=== PATIENT | female | born 1960 | race Caucasian/White ===

== ENCOUNTER → 2016-08-10 | Outpatient (CLI) | payer BC | END | disposition home or self-care (01) | LOC: GMAB 13:58 | PROVIDERS: ATTEND Family Medicine | DX: Z00.01 Encounter for general adult medical examination with abnormal findings (principal) ==

== ENCOUNTER 2017-03-14 06:07 | Day surgery (SDC) | payer BC ==
[2017-03-14] MEDS ORDERED: PROPOFOL 200 MG/20 ML VIAL IV ONE (06:08)
[2017-03-14] MEDS ORDERED: LACTATED RINGERS 1,000 ML ONE (06:23)
--- NOTE | 2017-03-14 10:17 | OP ---
DATE OF PROCEDURE: 03/14/17 PREPROCEDURE DIAGNOSIS: 1. Rectal bleeding. POSTPROCEDURE DIAGNOSIS: 1. Internal hemorrhoids. PROCEDURE: 1. Colonoscopy. SURGEON: Shaji Lawrence MD SEDATION: The patient was sedated via IV propofol by the Anesthesia Department. COMPLICATIONS: No immediate complications. CONSENT: Prior to the procedure, risks, benefits and alternatives to the therapy were discussed with the patient. The risks included bleeding, infection , perforation and . The patient agreed to the procedure and signed a consent. PREPROCEDURE ANESTHESIA ASSESSMENT: An examination revealed no contraindication to sedation. Airway examination demonstrated a Mallampati class type 3, ASA grade assessment type 2. Throughout the procedure, the patient's blood pressure, pulse and oxygen saturation were monitored continuously. PROCEDURE: The patient was placed in the left lateral decubitus position and a rectal examination was performed. The rectal examination was within normal limits. The Olympus colonoscope was passed in the anus, rectum, traversing the colon to the level of the cecum as identified by the appendiceal orifice. The scope was retracted and the mucosa was visualized. The entirety of the exam was performed with direct visualization. Retroflexion was performed in the rectum. Preparation quality was good. The withdrawal time was greater than 6 minutes. The patient tolerated the procedure well. FINDINGS: 1. An area of granularity was seen in the ileocecal valve. Biopsies were obtained from this area to rule out adenomatous tissue. 2. Medium sized, non-bleeding internal hemorrhoids were seen through retroflexion in the rectum. 3. External tags and external hemorrhoids were seen to digital rectal examination. IMPRESSION: 1. Non-bleeding internal hemorrhoids. This likely represents the source of bleeding. 2. Discrete area of granularity in the ileocecal valve, biopsied. RECOMMENDATION: 1. Return the patient home. 2. Resume previous diet. 3. Return to my office for hemorrhoidal banding in case of recurrent or persistent rectal bleeding. 4. Findings were discussed with the patient and the family members. 5. Followup pathology results. #[id number] [facility]
[2017-03-14 11:47] VITALS: BP 156/99; TEMP 97.7; O2SAT 96
== END 2017-03-14 09:52 | disposition home or self-care (01) ==
LOC: AMB 06:07
PROVIDERS: ATTEND Internal Medicine Gastroenterology
DX: K92.1 Melena (principal); K63.89 Other specified diseases of intestine; K64.8 Other hemorrhoids; K64.4 Residual hemorrhoidal skin tags; I10 Essential (primary) hypertension; K21.0 Gastro-esophageal reflux disease with esophagitis; E66.9 Obesity, unspecified; Z87.891 Personal history of nicotine dependence; J44.9 Chronic obstructive pulmonary disease, unspecified; F32.9 Major depressive disorder, single episode, unspecified; Z68.38 Body mass index [BMI] 38.0-38.9, adult; Z79.899 Other long term (current) drug therapy
CPT/HCPCS: 00811; 45380; J3490; J7120

== ENCOUNTER 2017-03-31 04:51 | Emergency (ER) | payer BC ==
[2017-03-31 05:07] VITALS: O2SAT 95
--- NOTE | 2017-03-31 05:36 | ED.PDOC ---
History of Present Illness - General Chief Complaint: Fever Stated Complaint: fever,cough,runny nose,congestion,headache Time Seen by Provider: 03/31/17 05:33 Source: patient Exam Limitations: no limitations - History of Present Illness Initial Comments: Silvina Cohen 56 y/o female seen today with cough,sneezing ,nasal congestion and fever for the last 4 days.She stated not better. Timing/Duration: constant, other - see hpi Severity: moderate Improving Factors: nothing Worsening Factors: nothing Associated Symptoms: other - see hpi Allergies/Adverse Reactions: Allergies [place] Allergy (Severe, Verified 03/31/17 05:07) Anaphylaxis Home Medications: Ambulatory Orders Budes/Formoterol INH 160/4.5 [Symbicort Inhaler 160/4.5] 1 puff INH DAILY Escitalopram Oxalate [Lexapro] 20 mg PO DAILY 03/23/15 Meloxicam 15 mg PO DAILY 03/23/15 Metoprolol Succinate [Toprol XL] 0 mg PO QD 03/23/15 Cefuroxime Axetil [Ceftin] 500 mg PO Q12H #14 tablet 03/31/17 Review of Systems - Review of Systems Constitutional: States: fever EENTM: States: see HPI Respiratory: States: see HPI Cardiology: States: no symptoms reported Gastrointestinal/Abdominal: States: no symptoms reported All other Systems: Reviewed and Negative, No Change from Baseline Past Medical History (General) - Patient Medical History Hx Seizures: No Hx Stroke: No Hx Dementia: No Hx Asthma: No Hx of COPD: Yes Hx Cardiac Disorders: No Hx Congestive Heart Failure: No Hx Pacemaker: No Hx Hypertension: Yes Hx Thyroid Disease: Yes Hx Diabetes: No Hx Gastroesophageal Reflux: Yes Hx Renal Disease: No Hx Cancer: Yes - cervical Hx of HIV: No Hx Hepatitis C: No Hx MRSA: No Surgical History: no surgical history, other - hysterectomy - Vaccination History Hx Tetanus, Diphtheria Vaccination: Yes - december 2016 Hx Influenza Vaccination: No Hx Pneumococcal Vaccination: No - Social History Hx Tobacco Use: Yes Hx Chewing Tobacco Use: No Hx Alcohol Use: No Hx Substance Use: No Hx Substance Use Treatment: No Hx Depression: No Hx Physical Abuse: No Hx Emotional Abuse: No Hx Suspected Abuse: No Family Medical History - Family History Mother Family History: Unknown Hx Family;Other: Pt was adopted, unknown biological family history. Physical Exam - Physical Exam General Appearance: Alert, Comfortable, No apparent distress Eye Exam: bilateral normal Ears, Nose, Throat: hearing grossly normal, normal pharynx Neck: non-tender, full range of motion, supple Respiratory: chest non-tender, lungs clear, normal breath sounds Cardiovascular/Chest: regular rate, rhythm, no murmur Peripheral Pulses: radial,right: 2+, radial,left: 2+ Gastrointestinal/Abdominal: normal bowel sounds, non tender, soft Back Exam: no vertebral tenderness Extremity: no pedal edema, no calf tenderness Neurologic: alert, oriented x 3 Progress - Results/Orders Results/Orders: Last Vital Signs Temp 99.6 F 03/31/17 05:00 Pulse 87 03/31/17 05:00 Resp 18 03/31/17 05:03 BP 147/102 03/31/17 05:00 Pulse Ox 95 03/31/17 05:00 Flu a/b-negative - EKG/XRAY/CT XRAY: chest - right basilar atelectasis Departure - Departure Clinical Impression: Pneumonia Qualifiers: Pneumonia type: due to unspecified organism Laterality: right Lung location: lower lobe of lung Qualified Code(s): J18.1 - Lobar pneumonia, unspecified organism Time of Disposition: 06:17 Disposition: Discharge to Home or Self Care Condition: Good Departure Forms: ED Discharge - Pt. Copy, Patient Portal Self Enrollment Instructions: DI for Pneumonia -- Adult Referrals: Flash Okeefe MD [Primary Care Provider] - 1-2 Weeks Prescriptions: Cefuroxime Axetil [Ceftin] 500 mg PO Q12H #14 tablet Home Medications: Ambulatory Orders Budes/Formoterol INH 160/4.5 [Symbicort Inhaler 160/4.5] 1 puff INH DAILY Escitalopram Oxalate [Lexapro] 20 mg PO DAILY 03/23/15 Meloxicam 15 mg PO DAILY 03/23/15 Metoprolol Succinate [Toprol XL] 0 mg PO QD 03/23/15 Cefuroxime Axetil [Ceftin] 500 mg PO Q12H #14 tablet 03/31/17 Additional Instructions: Drink extra fluids;May use over the counter cough medicine -Mucinex DM-one tablet am/pm for cough;Zyrtec-10 mg for nasal congestion at bedtime,Nasal saline spray for nose irrigation;Continue with all home medication
--- NOTE | 2017-03-31 05:58 | RAD ---
EXAM: Single view chest. INDICATION: Fever. COMPARISON: Chest x-ray: None. FINDINGS: Cardiac silhouette: Unremarkable. Arianne: Unremarkable. Lobar consolidation: None. Pleural effusion: None. Pneumothorax: None. Other: Right basilar interstitial opacities. There is subsegmental atelectasis along the left midlung Bones: Unremarkable. Other: None. IMPRESSION: Right basilar interstitial opacities, which may represent atelectasis or pneumonia. Electronically signed by: Elias Porter MD 03/31/2017 5:57 AM [facility] Workstation: [id number]
[2017-03-31] MEDS ORDERED: CEFUROXIME AXETIL TAB 250 MG TAB PO ONE (06:22)
[2017-03-31 06:37] VITALS: BP 133/97; TEMP 99.4
== END 2017-03-31 06:37 | disposition home or self-care (01) ==
LOC: ER 04:51
DX: J18.1 Lobar pneumonia, unspecified organism (principal); J44.9 Chronic obstructive pulmonary disease, unspecified; I10 Essential (primary) hypertension; E07.9 Disorder of thyroid, unspecified; Z85.41 Personal history of malignant neoplasm of cervix uteri; Z87.891 Personal history of nicotine dependence

== ENCOUNTER → 2017-07-17 | Outpatient (CLI) | payer BC ==
--- NOTE | 2017-07-17 14:23 | MRI ---
MRI right knee without contrast INDICATION: Knee pain no specific injury arthritis chronic symptoms initial encounter TECHNIQUE: Noncontrast MR imaging right knee FINDINGS: There is moderate lateral patellar tracking/subluxation. Multifocal grade 4 chondrosis throughout the patellofemoral joint especially lateral compartment with multifocal subchondral edema and cystic change and marginal osteophytes. There is a moderate joint effusion with multifocal mild reactive synovitis. Cruciate ligaments are intact. Extensor tendons are intact. Mild degenerative change of both menisci. There is a pedunculated osteophyte from the posterior medial tibial plateau. No major meniscal defect. Minimal free edge fraying body lateral meniscus on the coronal images. Mild osteoarthrosis of the tibiofemoral compartments as well with marginal osteophytes especially laterally and chondral thinning grade 2-3 in the lateral tibiofemoral compartment. Collateral ligaments are intact. IMPRESSION: Chondrosis and osteoarthrosis of the right knee most severe in the lateral patellofemoral joint Mild degenerative change of the menisci with minimal free edge fraying body lateral meniscus Moderate joint effusion No stabilizing ligament disruption Electronically signed by: Eugene Rebolledo MD 07/17/2017 2:22 PM CDT
== END ==
LOC: MRI 10:53
PROVIDERS: ATTEND Family Medicine
DX: M17.11 Unilateral primary osteoarthritis, right knee (principal)

== ENCOUNTER → 2017-07-26 | Outpatient (CLI) | payer BC ==
--- NOTE | 2017-07-26 15:56 | RAD ---
EXAM DESCRIPTION: Knee,Right Complete CLINICAL HISTORY: 57 years, Female, PAIN IN RIGHT KNEE COMPARISON: None TECHNIQUE: Four views of the right knee including standing views FINDINGS: No fracture or dislocation. Bones appear osteopenic with prominent trabecular pattern Mildly narrowed appearance of medial and lateral compartments on frontal view. Lateral view shows normal position of the patella. Mild superior posterior patellar spurring. No suprapatellar knee joint effusion. Normal contour of quadriceps and patellar tendons. Mild lateral tilt and subluxation of the patella on patellar sunrise view. Prominent lateral patellar spurring. [place] of the patella is 5 mm lateral to the trough of the femoral trochlea. IMPRESSION: Degenerative changes as described. Electronically signed by: Holland Chavarria MD 07/26/2017 3:55 PM CDT
--- NOTE | 2017-07-26 15:58 | RAD ---
EXAM DESCRIPTION: Pelvis CLINICAL HISTORY: 57 years Female, PAIN IN RIGHT HIP COMPARISON: None. TECHNIQUE: Single frontal x-ray view of pelvis and hips FINDINGS: Spurring at the lateral iliac wings noted bilaterally. Sacrum and bones of the pelvic ring appear intact. Proximal femurs are negative for fracture or hip dislocation. IMPRESSION: Negative for fracture. Electronically signed by: Holland Chavarria MD 07/26/2017 3:57 PM CDT
== END ==
LOC: RAD 08:14
PROVIDERS: ATTEND Orthopaedic Surgery
DX: M25.561 Pain in right knee (principal); M25.551 Pain in right hip

== ENCOUNTER → 2017-09-24 | Outpatient (CLI) | payer BC | LOC: RESP 08:25 | PROVIDERS: ATTEND Orthopaedic Surgery | DX: Z01.818 Encounter for other preprocedural examination (principal) ==

== ENCOUNTER → 2018-01-02 | Outpatient (CLI) | payer BC ==
--- NOTE | 2018-01-03 09:31 | US ---
US THYROID CLINICAL STATEMENT: E04.9. COMPARISON: None FINDINGS: Size right thyroid lobe: 4.5 x 2.1 x 2.0 cm Size left thyroid lobe: 4.3 x 1.9 x 1.8 cm Size isthmus: 0.41 cm Estimated total number of nodules greater than or equal to 1 cm: 1 Nodule 1: Size: 0.7 x 0.7 x 0.6 cm Location: Right Lower Composition: mixed cystic and solid: 1 point. Not vascular. Echogenicity: very hypoechoic: 3 points Shape: wider than tall: 0 points Margins: smooth: 0 points Echogenic foci: none: 0 points ACR Total Points: 4; ACR TI-RADS risk category: TR4 - moderately suspicious nodule. Nodule 2: Size: 1.0 x 1.0 x 0.9 cm Location: Left Lower Composition: solid or almost completely solid: 2 points. Nonvascular. Echogenicity: hypoechoic: 2 points Shape: wider than tall: 0 points Margins: ill-defined: 0 points Echogenic foci: none: 0 points ACR Total Points: 4; ACR TI-RADS risk category: TR4 - moderately suspicious nodule. The soft tissues around the thyroid gland show no evidence of distinct solid mass or cyst. No large calcifications or parenchymal edema. No overlying skin changes. Normal vascularity. IMPRESSION: 1. Nodule 1: ACR TI-RADS 2017 Category 4. Recommend: No further follow-up. . Please see ACR TI-RADS 2017 recommendations below.* 2. Nodule 2: ACR TI-RADS 2017 Category 4. Recommend: Follow-up ultrasound in 1 year. 3. Soft tissues around the thyroid gland are unremarkable. *ACR TI-RADS 2017 Recommendations: TR1: No FNA or follow up TR2: No FNA or follow up TR3: FNA if >/= 2.5 cm, follow up if 1.5 - 2.4 cm in 1, 3, and 5 years TR4: FNA if >/= 1.5 cm, follow up if 1.0 - 1.4 cm in 1, 2, 3, and 5 years TR5: FNA if >/= 1.0 cm, follow up if 0.5 - 0.9 cm every year for 5 years ACR TI-RADS recommends that no more than two nodules with the highest ACR TI-RADS total point should be biopsied and no more than four nodules should be followed. Electronically signed by: Bj Salgado MD 01/03/2018 9:29 AM CDT
--- NOTE | 2018-01-04 08:37 | MAM ---
EXAM DESCRIPTION: 3D Screening BILATERAL : Digital Mammography. CLINICAL HISTORY: 57 years Female SCREENING . No complaints. No personal or family history of breast cancer. Childbirth. Postmenopausal 28 years. No HRT. Lifetime risk of developing breast cancer (Tyrer-Cuzick model)(%): 5.7. COMPARISON: Baseline study at this facility. TECHNIQUE: Bilateral CC and MLO projection full-field images, Digital tomosynthesis mammographic technique. Bilateral digital 2-D full-field MLO images. CAD not utilized. FINDINGS: The breast parenchymal density pattern is: Scattered areas of fibroglandular density. No skin thickening or nipple retraction. 2 regions of focal asymmetry in the right breast: 1 upper outer quadrant posterior third approximately 7 cm from the nipple and the second the upper inner quadrant of the anterior third of the right breast approximately 3 cm from the nipple. No new focal, stellate mass or density, focal asymmetry , and no suspicious microcalcifications left breast. IMPRESSION: BI-RADS CATEGORY: 0 - INCOMPLETE- Need additional imaging evaluation. FOLLOW-UP: Recall for additional imaging: Targeted ultrasound right breast regions of interest. Diagnostic mammography to follow if indicated by ultrasound examination.. Written communication concerning the IMPRESSION and Follow-up, will be mailed to the patient and referring health care provider. Electronically signed by: Bj Salgado MD 01/04/2018 8:35 AM CDT
== END ==
LOC: MAMMO 14:00
PROVIDERS: ATTEND Family Medicine
DX: Z12.31 Encounter for screening mammogram for malignant neoplasm of breast (principal); E04.9 Nontoxic goiter, unspecified

== ENCOUNTER → 2018-01-15 | Outpatient (CLI) | payer BC ==
--- NOTE | 2018-01-15 20:19 | US ---
EXAM DESCRIPTION: Breast,Right: Ultrasound CLINICAL HISTORY: 57 yearsFemaleSCREENING. Focal asymmetry in the right breast. COMPARISON: Digital screening tomosynthesis bilateral breast 01/02/2018. TECHNIQUE: Transcutaneous scanning of the right breast utilizing rosas-scale and Doppler modes. Scanning performed by the yeast culture developer and Dr. Salgado. No follow-up diagnostic imaging was necessary. FINDINGS: Scanning of the upper outer quadrant of the posterior third of the right breast and the upper inner quadrant of the anterior third of the right breast. The breast is almost uniformly fatty echotexture with minimal fibroglandular elements. No distinct solid mass or cyst in either location. No large calcifications or parenchymal edema. No overlying skin changes. No abnormal vascularity. IMPRESSION: Benign exam. BIRAD CATEGORY: 2 BENIGN FINDINGS. RECOMMENDATIONS: FOLLOW UP: Return to routine digital bilateral mammographic screening, one year interval from December 2017. The FINDINGS and the FOLLOW-UP plan were reviewed in person with the patient after the examination. Written communication explaining the IMPRESSION and FOLLOW-UP will be mailed to the patient and referring care provider. According to the [employer], yearly mammograms are recommended starting at age 40 and continuing as long as a woman is in good health. Any breast change noted on a breast self-exam should be reported promptly to the patient's healthcare provider. Breast MRI is recommended for women with an approximately 20-25% or greater lifetime risk of breast cancer, including women with a strong family history of breast or ovarian cancer and women who have been treated for Hodgkin's disease. A negative mammographic report should not delay tissue diagnosis in patients with significant clinical history or physical findings. Extremely dense breast tissue limits the sensitivity of digital mammography. Electronically signed by: Bj Salgado MD 01/15/2018 8:17 PM [facility]
== END ==
LOC: MAMMO 14:00
PROVIDERS: ATTEND Family Medicine
DX: R92.2 Inconclusive mammogram (principal)

== ENCOUNTER 2018-05-31 10:40 | Emergency (ER) | payer BC ==
[2018-05-31] MEDS ORDERED: ASPIRIN (CHEWABLE) 81 MG TAB PO ONE (10:50)
[2018-05-31 11:01] VITALS: TEMP 98.1
[2018-05-31] MEDS ORDERED: ATORVASTATIN 20 MG TAB PO ONE (11:16)
[2018-05-31] MEDS ORDERED: CLOPIDOGREL 75 MG TAB PO ONE (11:16)
[2018-05-31] MEDS ORDERED: HEPARIN SODIUM (PORCINE) 5,000 U/ML VIAL IV ONE (11:16)
[2018-05-31] MEDS ORDERED: METOPROLOL TARTRATE INJ 5 MG/5 ML VIAL IV ONE ×2 (11:18→12:26)
--- NOTE | 2018-05-31 11:20 | ED.PDOC ---
History of Present Illness - General Chief Complaint: Blood Pressure Problem Stated Complaint: Pt states HTN since sunday Time Seen by Provider: 05/31/18 10:49 Source: patient Exam Limitations: no limitations - History of Present Illness Initial Comments: Patient presents from Dr. Landin's office after he noticed EKG changes and an elevated troponin. Patient says that she had chest pain 4 days ago that was midsternal and left sided. It was constant and pressure-like. No previous episodes. It resolved on its own that night. Patient denies cardiac history. She does have COPD, not on home oxygen, stopped smoking 17 years ago. No other complaints. Timing/Duration: resolved prior to arrival Severity: moderate Improving Factors: nothing, eating Associated Symptoms: denies symptoms Allergies/Adverse Reactions: Allergies [employer] Allergy (Severe, Verified 05/31/18 10:53) Anaphylaxis Wasp Venom Protein Allergy (Verified 05/31/18 10:53) Home Medications: Ambulatory Orders Budes/Formoterol INH 160/4.5 [Symbicort Inhaler 160/4.5] 1 puff INH DAILY 03/23/15 Escitalopram Oxalate [Lexapro] 10 mg PO DAILY 03/23/15 Meloxicam 15 mg PO DAILY 03/23/15 Metoprolol Succinate [Toprol Xl] 25 mg PO QD 03/23/15 Adalimumab [Humira Pen] 40 mg SC ONCE 10/15/17 Esomeprazole Magnesium [Nexium] 40 mg PO DAILY 10/15/17 Levalbuterol Inhaler [Xopenex Hfa 45 Mcg] 1 puff INH DAILY 10/15/17 Pramipexole Dihydrochloride [Mirapex] 0.125 mg PO DAILY 05/31/18 Vortioxetine HBr [Brintellix] 20 mg PO DAILY 05/31/18 Review of Systems - Review of Systems Constitutional: States: no symptoms reported EENTM: States: no symptoms reported Respiratory: States: no symptoms reported Cardiology: States: see HPI Gastrointestinal/Abdominal: States: no symptoms reported Genitourinary: States: no symptoms reported Musculoskeletal: States: no symptoms reported Skin: States: no symptoms reported Neurological: States: no symptoms reported Endocrine: States: no symptoms reported Hematologic/Lymphatic: States: no symptoms reported Past Medical History (General) - Patient Medical History Hx Seizures: No Hx Stroke: No Hx Dementia: No Hx Asthma: Yes Hx of COPD: Yes Hx Cardiac Disorders: No Hx Congestive Heart Failure: No Hx Pacemaker: No Hx Hypertension: Yes Hx Thyroid Disease: Yes Hx Diabetes: No Hx Gastroesophageal Reflux: Yes Hx Renal Disease: No Hx Cancer: Yes - cervical Hx of HIV: No Hx Hepatitis C: No Hx MRSA: No Surgical History: Hysterectomy, other - Vaccination History Hx Tetanus, Diphtheria Vaccination: Yes Hx Influenza Vaccination: Yes Hx Pneumococcal Vaccination: Yes Immunizations Up to Date: Yes - Social History Hx Tobacco Use: Yes Hx Chewing Tobacco Use: No Hx Alcohol Use: Yes Hx Substance Use: No Hx Substance Use Treatment: No Hx Depression: No Hx Physical Abuse: No Hx Emotional Abuse: No Hx Suspected Abuse: No - Female History Patient is a Female of Child Bearing Age (10 -59 yrs old): Yes Patient : No Family Medical History - Family History Mother Family History: Unknown Living Status: Unknown Hx Family;Other: Pt was adopted, unknown biological family history. Physical Exam - Physical Exam General Appearance: Alert Eye Exam: bilateral normal Ears, Nose, Throat: normal ENT inspection Neck: non-tender, full range of motion, supple Respiratory: lungs clear, normal breath sounds Cardiovascular/Chest: normal peripheral pulses, regular rate, rhythm, no edema Gastrointestinal/Abdominal: normal bowel sounds, non tender, soft Back Exam: normal inspection, no CVA tenderness, CVA tenderness (L) Extremity: normal range of motion, non-tender, normal inspection Neurologic: no motor/sensory deficits, alert, normal mood/affect, oriented x 3 Skin Exam: normal color Lymphatic: no adenopathy Progress - Progress Progress: 05/31/18 12:36 Laboratory Tests 05/31/18 05/31/18 05/31/18 11:19 11:19 11:19 WBC 9.3 RBC 4.85 Hgb 15.7 Hct 46.3 MCV 95.5 MCH 32.4 H MCHC 34.0 RDW 12.6 Plt Count 257 MPV 9.0 Absolute Neuts (auto) 6.50 Absolute Lymphs (auto) 1.60 Absolute Monos (auto) 0.90 H Absolute Eos (auto) 0.20 Absolute Basos (auto) 0.10 Neutrophils % 69.7 Lymphocytes % 17.2 L Monocytes % 10.1 H Eosinophils % 2.1 Basophils % 0.9 PT 10.1 INR 1.01 PTT (SP) 28.7 Sodium 138 Potassium 4.0 Chloride 103 Carbon Dioxide 27 Anion Gap 12.0 BUN 17 Creatinine 0.72 BUN/Creatinine Ratio 23.6 H Random Glucose 100 Serum Osmolality 277.3 Calcium 9.0 Magnesium Total Bilirubin 0.4 AST 27 ALT 27 Alkaline Phosphatase 100 Creatine Kinase 73 CK-MB (CK-2) 4.3 CK-MB (CK-2) % Not Reportable Troponin I 1.37 H* Serum Total Protein 6.7 Albumin 3.8 Globulin 2.9 Albumin/Globulin Ratio 1.3 05/31/18 11:19 WBC RBC Hgb Hct MCV MCH MCHC RDW Plt Count MPV Absolute Neuts (auto) Absolute Lymphs (auto) Absolute Monos (auto) Absolute Eos (auto) Absolute Basos (auto) Neutrophils % Lymphocytes % Monocytes % Eosinophils % Basophils % PT INR PTT (SP) Sodium Potassium Chloride Carbon Dioxide Anion Gap BUN Creatinine BUN/Creatinine Ratio Random Glucose Serum Osmolality Calcium Magnesium 1.8 Total Bilirubin AST ALT Alkaline Phosphatase Creatine Kinase CK-MB (CK-2) CK-MB (CK-2) % Troponin I Serum Total Protein Albumin Globulin Albumin/Globulin Ratio EKG showed inverted T waves in V3-V6. Troponin 1.38. Patient was given ASA 324 mg po x one on arrival. Nitropaste one inch to the jeni. Heparin 500 IU boluse then 12 IU/Kg/Hr drip, Plavix 150 mg po x one, atorvastatin 80 mg po x one, and lopressor 5 mg IV x one. SBP was in the 150s at that point so Labetolol 10 mg IV given. Patient accepted for transfer to [facility] by Ama Hardwick. Patient voiced understanding and agreement with the plan. Departure - Departure Clinical Impression: NSTEMI (non-ST elevated myocardial infarction) Disposition: Discharge to Home or Self Care Departure Forms: ED Discharge - Pt. Copy, Patient Portal Self Enrollment Instructions: DI for High Blood Pressure Diet: other - NPO Activity: as per physical therapy Referrals: MARY LANDIN MD [Primary Care Provider] - 1-2 Weeks Home Medications: Ambulatory Orders Budes/Formoterol INH 160/4.5 [Symbicort Inhaler 160/4.5] 1 puff INH DAILY 03/23/15 Escitalopram Oxalate [Lexapro] 10 mg PO DAILY 01/12/16 Meloxicam 15 mg PO DAILY 03/23/15 Metoprolol Succinate [Toprol Xl] 25 mg PO QD 03/23/15 Adalimumab [Humira Pen] 40 mg SC ONCE 10/15/17 Esomeprazole Magnesium [Nexium] 40 mg PO DAILY 10/15/17 Levalbuterol Inhaler [Xopenex Hfa 45 Mcg] 1 puff INH DAILY 10/15/17 Pramipexole Dihydrochloride [Mirapex] 0.125 mg PO DAILY 05/31/18 Vortioxetine HBr [Brintellix] 20 mg PO DAILY 05/31/18 Critical Care Note - Critical Care Note Total Time (mins): 90 Transfer to Outside Facility - Transfer Information Accepting Facility: [facility] - to Dr. Randall Reason for Transfer: required specialist not available
[2018-05-31] MEDS ORDERED: NITROGLYCERIN 2% 1 GM UD TOP ONE (11:28)
[2018-05-31] MEDS ORDERED: HEPARIN PREMIX 25,000 UNITS in PREMIX BAG 1 BAG IVS SCH (11:30)
[2018-05-31] MEDS ORDERED: HEPARIN PREMIX 500 ML ONE (11:36)
--- NOTE | 2018-05-31 11:54 | RAD ---
Portable chest one view INDICATION: Chest pain COMPARISON: March 31 IMPRESSION: Stable linear scarring or atelectasis left lower lung. Heart size upper limits normal. No overt failure or focal infiltrate. No acute process Electronically signed by: Eugene Rebolledo MD 05/31/2018 11:51 AM CDT
[2018-05-31 12:43] VITALS: BP 146/91; O2SAT 99
== END 2018-05-31 12:49 | disposition short-term general hospital (02) ==
LOC: ER 10:40
DX: I21.4 Non-ST elevation (NSTEMI) myocardial infarction (principal); J44.9 Chronic obstructive pulmonary disease, unspecified; I10 Essential (primary) hypertension; E07.9 Disorder of thyroid, unspecified; K21.9 Gastro-esophageal reflux disease without esophagitis; Z87.891 Personal history of nicotine dependence; Z85.41 Personal history of malignant neoplasm of cervix uteri; Z79.899 Other long term (current) drug therapy
CPT/HCPCS: 36415; 71045; 80053; 82550; 82553; 83735; 84484; 85025; 85610; 85730; 93005; J1644

== ENCOUNTER → 2018-05-31 | Outpatient (CLI) | payer BC | LOC: GMAE 09:32 | PROVIDERS: ATTEND Family Medicine | DX: R07.2 Precordial pain (principal) ==

== ENCOUNTER → 2019-04-23 | Outpatient (CLI) | payer BC | LOC: GMAE 10:47 | PROVIDERS: ATTEND Family Medicine | DX: Z00.00 Encounter for general adult medical examination without abnormal findings (principal) ==

== ENCOUNTER → 2019-10-22 | Outpatient (CLI) | payer BC | LOC: GMAE 14:37 | PROVIDERS: ATTEND Family Medicine | DX: R30.0 Dysuria (principal) ==